=== PATIENT | female | born 1960 | race Caucasian/White ===

== ENCOUNTER 2016-09-03 09:08 | Day surgery (SDC) | payer OTHER ==
[2016-09-02 10:47] LABS: ASPARTATE AMINO TRANSFERASE 17 U/L (15-37); BLOOD UREA NITROGEN 8 mg/dL (7-18)
[~2016-09-03] VITALS: Ht 172.7 cm; Wt 76.0 kg
[~2016-09-03 09:08] MED LIST: ASCO500T12 PO; LISI-167 PO
[2016-09-03 09:42] VITALS: BP 153/92
[2016-09-03] MEDS ORDERED: LACTATED RINGERS 1,000 ML IV SCH ×2 (09:44→11:48)
[2016-09-03] MEDS ORDERED: HEPARIN 1,000 UNITS/ML, 10ML ONE (10:27)
[2016-09-03] MEDS ORDERED: EPINEPHRINE 1 MG/ML, 1ML ONE (10:27)
[2016-09-03] MEDS ORDERED: BUPIVACAINE/PF 0.5% ONE (10:27)
[2016-09-03] MEDS ORDERED: MIDAZOLAM 1 MG/ML, 2ML ONE (10:36)
[2016-09-03] MEDS ORDERED: FENTANYL PF 250 MCG/5ML ONE (10:37)
[2016-09-03] MEDS ORDERED: CEFAZOLIN 1,000 MG ONE (11:09)
[2016-09-03] MEDS ORDERED: DEXAMETHASONE 4 MG/ML, 1ML ONE (11:09)
[2016-09-03] MEDS ORDERED: KETOROLAC 30 MG/1 ML ONE (11:09)
[2016-09-03] MEDS ORDERED: PROPOFOL 10 MG/ML, 20ML ONE (11:09)
[2016-09-03] MEDS ORDERED: ONDANSETRON 2MG/ML, 2ML ONE (11:09)
[2016-09-03] MEDS ORDERED: PROMETHAZINE 25 MG/ML, 1ML IV PRN (12:00)
[2016-09-03] MEDS ORDERED: LABETALOL 5MG/ML, 20ML IV PRN (12:00)
[2016-09-03] MEDS ORDERED: MEPERIDINE/PF 25MG/0.5ML IVPush PRN (12:00)
[2016-09-03] MEDS ORDERED: FENTANYL PF 100 MCG/2ML IV PRN (12:00)
[2016-09-03] MEDS ORDERED: HYDROmorphone 1 MG/ML, 1ML IV PRN (12:00)
[2016-09-03] MEDS ORDERED: MIDAZOLAM 1 MG/ML, 2ML IV PRN (12:00)
[2016-09-03] MEDS ORDERED: OXYcodone 5 MG/5 ML ORAL.SOL UDC PO PRN ×2 (12:00)
[2016-09-03] MEDS ORDERED: hydrALAzine 20 MG/ML, 1ML IV PRN (12:00)
[2016-09-03] MEDS ORDERED: ONDANSETRON 2MG/ML, 2ML IVPush PRN ×2 (12:00)
[2016-09-03] MEDS ORDERED: KETOROLAC 30 MG/1 ML IVPush PRN (12:00)
[2016-09-03] MEDS ORDERED: ACETAMINOPHEN 325 MG TABLET PO PRN (12:00)
[2016-09-03] MEDS ORDERED: ALBUTEROL/IPRATROPIUM 2.5MG/0.5MG, 3 ML NPPB PRN (12:00)
[2016-09-03] MEDS ORDERED: ACETAMINOPHEN 650 MG/20.3 ML UDC ONE (12:01)
[2016-09-03] MEDS ORDERED: ACETAMINOPHEN 325 MG/10.15 ML UDC ONE (12:02)
== END 2016-09-03 13:15 ==
LOC: OUT 09:08
PROVIDERS: ATTEND Surgery
DX: Z45.2 Encounter for adjustment and management of vascular access device (principal); C50.911 Malignant neoplasm of unspecified site of right female breast; I10 Essential (primary) hypertension; Z88.1 Allergy status to other antibiotic agents
CPT/HCPCS: 36415; 36561; 77001; 80053; C1788; J0171; J0690; J1100; J1644; J1885; J2250; J2405; J2704; J3010; J3490; J7120

== ENCOUNTER → 2016-09-24 | Outpatient (CLI) | payer OTHER ==
[~2016-09-24] MED LIST changes: +OMNIPAQUE 350 MG/ML, 100ML BOTTLE ONE
== END | disposition home or self-care (01) ==
LOC: CVU 12:41
PROVIDERS: ATTEND Internal Medicine
DX: N63 Unspecified lump in breast (principal); E04.2 Nontoxic multinodular goiter; N83.201 Unspecified ovarian cyst, right side; K57.30 Diverticulosis of large intestine without perforation or abscess without bleeding; N28.1 Cyst of kidney, acquired; K76.9 Liver disease, unspecified; N85.8 Other specified noninflammatory disorders of uterus; I10 Essential (primary) hypertension; I35.1 Nonrheumatic aortic (valve) insufficiency; Z90.5 Acquired absence of kidney
CPT/HCPCS: 71260; 74177; 93306; Q9967

== ENCOUNTER → 2016-09-25 | Outpatient (CLI) | payer OTHER ==
[~2016-09-25] MED LIST changes: -OMNIPAQUE 350 MG/ML, 100ML BOTTLE ONE
== END | disposition home or self-care (01) ==
LOC: PETCFH 10:44
PROVIDERS: ATTEND Internal Medicine
DX: C50.211 Malignant neoplasm of upper-inner quadrant of right female breast (principal); Z90.5 Acquired absence of kidney
CPT/HCPCS: 78306; A9503